=== PATIENT | male | born 1960 | race African-American/Black ===

== ENCOUNTER 2024-02-26 23:04 | Emergency (ER) | payer SELFPAY ==
[~2024-02-26] VITALS: Ht 175.3 cm; Wt 76.0 kg
[2024-02-26 23:07] VITALS: O2SAT 98
[2024-02-26 23:45] VITALS: BP 106/77; PULSE 78; RESP 16
[2024-02-27] LABS: HEMATOCRIT. 23.7 % (42.0-52.0); HEMOGLOBIN. 7.7 g/dL (14.0-18.0); MEAN CORPUSCULAR HEMOGLOBIN 27.4 pg (28.0-32.0); MEAN CORPUSCULAR HGB CONC 32.6 g/dL (31.0-37.0); MEAN CORPUSCULAR VOLUME 84.2 fL (80.0-94.0); MEAN PLATELET VOLUME 7.6 fl (7.4-10.4); PLATELET 247 x1000/uL (130-400); RED BLOOD CELL COUNT 2.81 mill/uL (4.7-6.1); RED CELL DISTRIBUTION WIDTH 17.6 % (11.6-14.6); WHITE BLOOD COUNT 5.9 x1000/uL (4.5-11.0)
[2024-02-27 00:02] LABS: CHLORIDE 107 mEq/L (98-107); POTASSIUM 3.9 mEq/L (3.5-5.1); SODIUM 139 mEq/L (136-145)
[2024-02-27 00:03] LABS: CALCIUM 9.3 mg/dL (8.7-10.4); CARBON DIOXIDE 24 mEq/L (21-32)
[2024-02-27 00:08] LABS: GLUCOSE 113 mg/dL (70-105); UREA NITROGEN BLOOD 12 mg/dL (9-23)
[2024-02-27 00:09] LABS: INR 1.1; PROTHROMBIN TIME 12.1 sec (9.6-11.0)
[2024-02-27 00:10] LABS: ALANINE AMINOTRANSFERASE 19 IU/L (10-49); ALBUMIN 4.5 g/dL (3.2-4.8); ASPARTATE AMINOTRANSFERASE 21 IU/L (<34); BILIRUBIN DIRECT 0.1 mg/dL (<=3.0); BILIRUBIN TOTAL 0.3 mg/dL (0.1-1.0); PROTEIN TOTAL 7.2 g/dL (6.0-8.3)
[2024-02-27 00:12] LABS: DIFFERENTIAL COMMENT 1
[2024-02-27 00:41] VITALS: TEMP 98.7
[2024-02-27] MEDS: ACETAMINOPHEN 325MG TABLET PO ONE (00:41)
[2024-02-27] MEDS: MORPHINE SULFATE 4 MG/ML INJ (FOR IV/IM USE) IV ONE (03:00)
[2024-02-27] MEDS: ONDANSETRON HCL 4MG/2ML INJ IV ONE (03:00)
[2024-02-27 04:47] LABS: HYPOCHROMASIA 2+; NUCLEATED RED BLOOD CELLS 3 /100 WBC; PLATELET ESTIMATE NORMAL
[2024-02-27 04:48] LABS: GIANT PLATELETS FEW; OVALOCYTES 1+; TARGET CELLS 1+
== END 2024-02-27 03:13 | disposition home or self-care (01) ==
LOC: ER 23:04
DX: K42.9 Umbilical hernia without obstruction or gangrene (principal); D64.9 Anemia, unspecified; N40.0 Benign prostatic hyperplasia without lower urinary tract symptoms; R60.1 Generalized edema; I48.91 Unspecified atrial fibrillation; Z87.891 Personal history of nicotine dependence
CPT/HCPCS: 80076; 80048; 83690; 85025; 85610; 36415; 99285; 74176; 96374; J2405; Z7610; J2270